=== PATIENT | female | born 1980 ===

== ENCOUNTER 2016-06-05 08:01 | Emergency (ER) | payer BC ==
[2016-06-05 08:13] VITALS: BMI 27.6
[2016-06-05 08:16] VITALS: PULSE 60; RESP 16; O2SAT 100
--- NOTE | 2016-06-05 08:36 | ED PDOC ---
HPI: Abdomen Time Seen by Provider: 06/05/16 08:24 Chief Complaint (Nursing): Abdominal Pain Chief Complaint (Provider): RLQ Pain History Per: Patient History/Exam Limitations: no limitations Onset/Duration Of Symptoms: Hrs (x2) Current Symptoms Are (Timing): Still Present Severity: Mild Location Of Pain/Discomfort: RLQ Quality Of Discomfort: Sharp Associated Symptoms: denies: Nausea, Vomiting, Diarrhea, Urinary Symptoms Exacerbating Factors: Other (standing) Additional Complaint(s): Patient is a 35 year old female presenting to the ED complaining of sharp right lower quadrant pain since 6:00 today. Pain is worse when standing. Denies nausea , vomiting, diarrhea, or dysuria. Of Note: Last Menstrual Period was May 23 to the . PMD: Amy Joya Past Medical History Reviewed: Historical Data, Nursing Documentation, Vital Signs Vital Signs: Last Vital Signs Temp 97.6 F 06/05/16 08:15 Pulse 60 06/05/16 08:15 Resp 16 06/05/16 08:15 BP 120/77 06/05/16 08:15 Pulse Ox 100 06/05/16 08:38 - Medical History PMH: No Chronic Diseases - Surgical History Surgical History: No Surg Hx - Family History Family History: States: No Known Family Hx - Home Medications Home Medications: Ambulatory Orders Medication Instructions Recorded Naproxen [Naprosyn] 500 mg PO Q12H #20 tab 06/05/16 - Allergies Allergies/Adverse Reactions: Allergies Allergy/AdvReac Type Severity Reaction Status Date / Time No Known Allergies Allergy Verified 06/05/16 08:33 Review of Systems ROS Statement: Except As Marked, All Systems Reviewed And Found Negative Constitutional: Negative for: Fever Gastrointestinal: Positive for: Abdominal Pain. Negative for: Nausea, Vomiting , Diarrhea Genitourinary Female: Negative for: Dysuria Physical Exam - Reviewed Nursing Documentation Reviewed: Yes Vital Signs Reviewed: Yes - Physical Exam Appears: Positive for: Well, Non-toxic, No Acute Distress Head Exam: Positive for: ATRAUMATIC, NORMAL INSPECTION, NORMOCEPHALIC Skin: Positive for: Normal Color, Warm, DRY Eye Exam: Positive for: Normal appearance, EOMI Cardiovascular/Chest: Positive for: Regular Rate, Rhythm. Negative for: Gallop , Murmur Respiratory: Positive for: Normal Breath Sounds. Negative for: Accessory Muscle Use, Rhonchi, Respiratory Distress Gastrointestinal/Abdominal: Positive for: Soft, Tenderness (mild RLQ tend). Negative for: Mass, Distended, Guarding, Rebound Back: Positive for: Normal Inspection. Negative for: L CVA Tenderness, R CVA Tenderness Extremity: Positive for: Normal ROM. Negative for: Other (-no pain on leg raise ) Neurologic/Psych: Positive for: Alert, Oriented - Laboratory Results Result Diagrams: 06/05/16 08:43 06/05/16 08:43 - ECG O2 Sat by Pulse Oximetry: 100 (RA) Pulse Ox Interpretation: Normal Medical Decision Making Medical Decision Making: Time: 8:30 Impression: 35 y/o female with RLQ pain Plan: CT A/P CMP UPreg UDip CBC US Transvaginal Scribe Attestation: Documented by Benedict Nichols acting as a scribe for Mike Aguilera MD. Scribe Attestation: All medical record entries made by the Scribe were at my direction and personally dictated by me. I have reviewed the chart and agree that the record accurately reflects my personal performance of the history, physical exam, medical decision making, and the department course for this patient. I have also personally directed, reviewed, and agree with the discharge instructions and disposition. Disposition - Clinical Impression Clinical Impression: Abdominal pain in female - Patient ED Disposition Is Patient to be Admitted: No Counseled Patient/Family Regarding: Studies Performed, Diagnosis, Need For Followup, Rx Given - Disposition [facility] Disposition: Routine/Home Disposition Time: 12:14 Condition: FAIR Prescriptions: Naproxen [Naprosyn] 500 mg PO Q12H #20 tab Instructions: Abdominal Pain (ED)
[2016-06-05 09:01] LABS: BASO % 0.4 % (0.0-2.0); EOS % 0.6 % (0.0-4.0); HEMATOCRIT 36.3 % (34.0-47.0); LYMPH # 1.8 K/uL (1.0-4.3); LYMPH % 24.9 % (20.0-40.0); MEAN CELL VOLUME 85.2 fl (81.0-99.0); MEAN CORPUSCULAR HEMOGLOBIN 29.7 pg (27.0-31.0); MEAN CORPUSCULAR HGB CONC 34.9 g/dL (33.0-37.0); MEAN PLATELET VOLUME 8.8 fl (7.2-11.7); MONO # 0.5 K/uL (0.0-0.8); MONO % 6.5 % (0.0-10.0); NEUT # 4.8 K/uL (1.8-7.0); NEUT % 67.6 % (50.0-75.0); NRBC % 0.1 % (0.0-0.0); RED CELL DISTRIBUTION WIDTH 13.9 % (11.5-14.5); WHITE BLOOD COUNT 7.1 K/uL (4.8-10.8)
[2016-06-05 09:04] LABS: ALB/GLOB RATIO 1.1 (1.0-2.1); ALKALINE PHOSPHATASE 60 U/L (38-126); ALT/SGPT 28 U/L (9-52); AST/SGOT 21 U/L (14-36); BILIRUBIN,TOTAL 0.8 mg/dl (0.2-1.3); BLOOD UREA NITROGEN 11 mg/dl (7-17); CARBON DIOXIDE 27 mmol/L (22-30); CHLORIDE 104 mmol/L (98-107); GFR AFRICAN-AMERICAN > 60; GLUCOSE,RANDOM 92 mg/dL (65-105); POTASSIUM 3.7 MMOL/L (3.6-5.0); SODIUM 143 mmol/l (132-148); TOTAL PROTEIN 7.1 G/DL (6.3-8.2)
[2016-06-05] MEDS ORDERED: Iohexol 350 MG/100 ML VIAL ONE (09:21)
[2016-06-05] MEDS ORDERED: Sodium Chloride 0.9% 50 ML IV ONE (09:21)
--- NOTE | 2016-06-05 10:07 | CT ---
PROCEDURE: CT Abdomen and Pelvis with contrast HISTORY: RLQ pain COMPARISON: Comparison is made to the previous study dated 11/16/2015 TECHNIQUE: Axial and reformatted coronal and sagittal CT images of the abdomen and pelvis were obtained after IV contrast administration. Contrast dose: 95 mL of Omnipaque 350 Radiation dose: Total exam DLP = 746.6 mGy-cm. This CT exam was performed using one or more of the following dose reduction techniques: Automated exposure control, adjustment of the mA and/or kV according to patient size, and/or use of iterative reconstruction technique. FINDINGS: LOWER THORAX: Unremarkable. LIVER: Unremarkable. No gross lesion or ductal dilatation. GALLBLADDER AND BILE DUCTS: Unremarkable. PANCREAS: Unremarkable. No gross lesion or ductal dilatation. SPLEEN: Unremarkable. ADRENALS: Unremarkable. No mass. KIDNEYS AND URETERS: Unremarkable. No hydronephrosis. No solid mass. VASCULATURE: Unremarkable. No aortic aneurysm. BOWEL: Mild constipation is noted. There is no evidence of bowel obstruction. APPENDIX: There is no evidence of appendicitis. PERITONEUM: Small amount of free fluid seen in the pelvis. LYMPH NODES: Unremarkable. No enlarged lymph nodes. BLADDER: Unremarkable. REPRODUCTIVE: Heterogeneous enhancement of the uterus is noted. There is a small amount of fluid in the endometrial cavity. The adnexa are not clearly visualized in this study. BONES: No acute fracture. OTHER FINDINGS: None. IMPRESSION: No evidence of acute appendicitis. Mild constipation. Heterogeneously enhancing uterus contains small amount of fluid in the endometrial cavity. If clinically warranted further assessment of the pelvis by ultrasound may be obtained. Otherwise no evidence of acute pathology in the abdomen and pelvis.
--- NOTE | 2016-06-05 11:54 | US ---
HISTORY: RLQ pain COMPARISON: Comparison is made to the previous study dated 11/16/2015. TECHNIQUE: Transabdominal ultrasound examination of the pelvis was performed. FINDINGS: UTERUS: Measures 8.1 x 4.7 x 4 cm. Normal in size and appearance. No fibroid or other mass lesion seen. ENDOMETRIUM: Measures 7.5 mm in diameter. Trace of fluid seen in the endometrial cavity CERVIX: No cervical abnormality identified. RIGHT OVARY: Measures 3.6 x 3.5 x 2.1 cm. No solid mass. Normal flow. LEFT OVARY: Measures 2.6 x 2.6 x 1.4 cm. No solid mass. Normal flow. FREE FLUID: No significant free fluid noted. OTHER FINDINGS: None. IMPRESSION: No ultrasound evidence of acute pathology in the pelvis. Trace amount of fluid in the endometrial cavity.
[2016-06-05 12:44] VITALS: BP 101/64; TEMP 98
== END 2016-06-05 12:24 | disposition home or self-care (01) ==
LOC: H.ER 08:01
DX: R10.31 Right lower quadrant pain (principal); K59.00 Constipation, unspecified
CPT/HCPCS: 74177; 76857; 80053; 81025; 85025; 99284; Q9967